=== PATIENT | female | born 1995 | race African-American/Black ===

== ENCOUNTER 2017-01-09 11:03 | Emergency (ER) | payer SELFPAY ==
[2017-01-09 11:15] VITALS: BP 105/59
[2017-01-09] MEDS ORDERED: diphenhydrAMINE 50 MG/ML SDV IVPUSH ONE (11:39)
[2017-01-09] MEDS ORDERED: Ondansetron 4 MG/2 ML SDV IVPUSH ONE (11:39)
[2017-01-09] MEDS ORDERED: Lactated Ringers 1,000 ML IV ONE ×2 (11:39→13:22)
[2017-01-09] MEDS ORDERED: Sodium Chloride 0.9% 10 ML Syringe FLUSH PRN (11:40)
[2017-01-09] MEDS ORDERED: Ketorolac 15 MG/ML SDV IVPUSH ONE (11:40)
--- NOTE | 2017-01-09 11:57 | EDM.PDOC ---
ED HPI GENERAL MEDICAL PROBLEM - General Chief Complaint: Headache Stated Complaint: DIZZINESS Time Seen by Provider: 01/09/17 11:30 Source of Information: Reports: Patient, Family, Old Records (previous ER visit) - History of Present Illness INITIAL COMMENTS - FREE TEXT/NARRATIVE: 21-year-old female presents with her family for evaluation and treatment of fevers, chills, headache and dizziness. Reportedly the symptoms started yesterday with heartburn. She has not taken her temperature at home but has felt feverish, dizzy, weak and restless. She reports she last had something to eat yesterday. She did have a little bit of water today. Reports that the heartburn has now mostly resolved. Drinking fluids and eating reportedly causes nausea. When questioned, she states that she does have chest pain, shortness of breath, sore throat and ear pain. No cough or abdominal pain. Family reports that she had heavier menstrual cycle this morning. She states that her menstrual cycle is now over with. Denies any dysuria but reports that her urine is red. Denies any pain in her legs recently. No treatment such as Tylenol, ibuprofen or other [id number] medications prior to arrival in the ER. Reports that she did travel to [place] via bus recently. Reports that she has a past medical history of asthma and seizures. Diagnosis seizures last year in October. She is transferred to [place] for further management and care. It is very unclear if she is still supposed to be on any seizure medications. She is not currently on any seizure medications. Is unclear if she has seen a neurologist since her diagnosis. Onset: Other (yesterday) Headache Pain Score (Numeric/FACES): 7 - Related Data Allergies Allergy/AdvReac Type Severity Reaction Status Date / Time No Known Allergies Allergy Verified 01/09/17 11:15 Home Meds: Home Meds . [No Known Home Meds] 11/28/15 [History] Past Medical History - Past Health History Medical/Surgical History: Denies Medical/Surgical History Respiratory History: Reports: Asthma Neurological History: Reports: Seizure Social & Family History - Tobacco Use Smoking Status *Q: Never Smoker - Recreational Drug Use Recreational Drug Use: No ED ROS GENERAL - Review of Systems Review Of Systems: See Below (languge barrier present; questionable comprehension of the patient and family) Constitutional: Reports: Fever, Chills, Malaise, Weakness, Other (restless) HEENT: Reports: Ear Pain, Throat Pain Respiratory: Reports: Shortness of Breath. Denies: Cough Cardiovascular: Reports: Chest Pain, Other (heartburn, now resolved) GI/Abdominal: Reports: Nausea. Denies: Abdominal Pain, Vomiting : Reports: Other (reports a heavy menstrual cycle this morning). Denies: Dysuria Neurological: Reports: Dizziness, Headache ED EXAM, GENERAL - Physical Exam Exam: See Below Exam Limited By: Language Barrier General Appearance: Alert, WD/WN, No Apparent Distress Eye Exam: Bilateral Eye: PERRL Ears: Normal External Exam, Normal Canal, Hearing Grossly Normal, Normal TMs Nose: Normal Inspection Throat/Mouth: Normal Inspection, Normal Lips, Normal Oropharynx, Normal Voice, No Airway Compromise Neck: Normal Inspection. No: Lymphadenopathy (L), Lymphadenopathy (R) Respiratory/Chest: No Respiratory Distress, Lungs Clear, Normal Breath Sounds Cardiovascular: Normal Peripheral Pulses, Regular Rate, Rhythm, No Murmur Peripheral Pulses: 2+: Radial (L), Radial (R), Posterior Tibial (L), Posterior Tibial (R) GI/Abdominal: Soft, Tender (generalized), Other (hypoactive bowel sounds) Extremities: No: Pete's Sign Neurological: Alert, Normal Cognition Psychiatric: Normal Affect, Normal Mood Skin Exam: Warm, Dry, Normal Color EKG INTERPRETATION EKG Date: 01/09/17 Time: 11:45 Rhythm: NSR Rate (Beats/Min): 94 [place]: Normal P-Wave: Present QRS: Normal ST-T: Normal QT: Normal EKG Interpretation Comments: NSR at 94 bpm. No acute changes. Reviewed by myself and Dr. Martinez. Course - Vital Signs Last Recorded V/S: Last Vital Signs Temp 37.4 C 01/09/17 11:11 Pulse 100 01/09/17 11:11 Resp 20 01/09/17 11:11 BP 105/59 L 01/09/17 11:11 Pulse Ox 97 01/09/17 11:11 Orthostatic Blood Pressure [ 92/71 Standing] Orthostatic Blood Pressure [ 88/45 Sitting] Orthostatic Blood Pressure [ 92/51 Supine] - Orders/Labs/Meds Orders: Active Orders 24 hr Category Date Time Status EKG 12 Lead [EKG Documentation Completion] [RC] STAT Care 01/09/17 11:38 Active Orthostatic Vital Signs [RC] ASDIRECTED Care 01/09/17 11:39 Active Peripheral IV Care [RC] . DIRECTED Care 01/09/17 11:40 Active Chest 1V Frontal [CR] Stat Exams 01/09/17 11:38 Taken Sodium Chloride 0.9% [Saline Flush] Med 01/09/17 11:40 Active 10 ml FLUSH ASDIRECTED PRN Peripheral IV Insertion Adult [OM.PC] Routine Oth 01/09/17 11:40 Ordered Medication Orders Sodium Chloride (Saline Flush) 10 ml FLUSH ASDIRECTED PRN PRN Reason: Keep Vein Open Last Admin: 01/09/17 12:02 Dose: 10 ml Labs: Laboratory Tests 01/09/17 01/09/17 01/09/17 Range/Units 11:43 11:43 11:43 WBC 5.74 (3.98-10.04) K/mm3 RBC 3.74 L (3.98-5.22) M/mm3 Hgb 11.8 (11.2-15.7) gm/L Hct 35.8 (34.1-44.9) % MCV 95.7 H (79.4-94.8) fl MCH 31.6 (25.6-32.2) pg MCHC 33.0 (32.2-35.5) g/dl RDW Std Deviation 45.3 (36.4-46.3) fL Plt Count 180 L (182-369) K/mm3 MPV 10.4 (9.4-12.3) fl Neutrophils % (Manual) 63 H (40-60) % Band Neutrophils % 4 (0-10) % Lymphocytes % (Manual) 24 (20-40) % Atypical Lymphs % 0 % Monocytes % (Manual) 7 (2-10) % Eosinophils % (Manual) 2 (0.7-5.8) % Basophils % (Manual) 0 L (0.1-1.2) Platelet Estimate Adequate RBC Morph Comment Normal D-Dimer, Quantitative 0.20 (0.19-0.59) mg/L Sodium 136 (136-145) mEq/L Potassium 3.4 L (3.5-5.1) mEq/L Chloride 100 (98-107) mEq/L Carbon Dioxide 23 (21-32) mEq/L Anion Gap 16.4 H (5-15) BUN 13 (7-18) mg/dL Creatinine 0.9 (0.55-1.02) mg/dL Est Cr Clr Drug Dosing 80.74 mL/min Estimated GFR (MDRD) > 60 (>60) mL/min BUN/Creatinine Ratio 14.4 (14-18) Glucose 79 (74-106) mg/dL Calcium 9.1 (8.5-10.1) mg/dL Total Bilirubin 0.6 (0.2-1.0) mg/dL AST 18 (15-37) U/L ALT 18 (14-59) U/L Alkaline Phosphatase 48 (46-116) U/L Troponin I (0.00-0.056) ng/mL C-Reactive Protein < 0.2 (<1.0) mg/dL Total Protein 8.2 (6.4-8.2) g/dl Albumin 3.8 (3.4-5.0) g/dl Globulin 4.4 gm/dL Albumin/Globulin Ratio 0.9 L (1-2) Lipase 218 (73-393) U/L HCG, Qual (NEGATIVE) Urine Color (Yellow) Urine Appearance (Clear) Urine pH (5.0-8.0) Ur Specific [place] (1.005-1.030) Urine Protein (Negative) Urine Glucose (UA) (Negative) Urine Ketones (Negative) Urine Occult Blood (Negative) Urine Nitrite (Negative) Urine Bilirubin (Negative) Urine Urobilinogen (0.2-1.0) Ur Leukocyte Esterase (Negative) Urine RBC (0-5) /hpf Urine WBC (0-5) /hpf Ur Epithelial Cells (0-5) /hpf Urine Bacteria (FEW) /hpf Urine Mucus (FEW) /hpf 01/09/17 01/09/17 01/09/17 Range/Units 11:43 11:43 13:05 WBC (3.98-10.04) K/mm3 RBC (3.98-5.22) M/mm3 Hgb (11.2-15.7) gm/L Hct (34.1-44.9) % MCV (79.4-94.8) fl MCH (25.6-32.2) pg MCHC (32.2-35.5) g/dl RDW Std Deviation (36.4-46.3) fL Plt Count (182-369) K/mm3 MPV (9.4-12.3) fl Neutrophils % (Manual) (40-60) % Band Neutrophils % (0-10) % Lymphocytes % (Manual) (20-40) % Atypical Lymphs % % Monocytes % (Manual) (2-10) % Eosinophils % (Manual) (0.7-5.8) % Basophils % (Manual) (0.1-1.2) Platelet Estimate RBC Morph Comment D-Dimer, Quantitative (0.19-0.59) mg/L Sodium (136-145) mEq/L Potassium (3.5-5.1) mEq/L Chloride (98-107) mEq/L Carbon Dioxide (21-32) mEq/L Anion Gap (5-15) BUN (7-18) mg/dL Creatinine (0.55-1.02) mg/dL Est Cr Clr Drug Dosing mL/min Estimated GFR (MDRD) (>60) mL/min BUN/Creatinine Ratio (14-18) Glucose (74-106) mg/dL Calcium (8.5-10.1) mg/dL Total Bilirubin (0.2-1.0) mg/dL AST (15-37) U/L ALT (14-59) U/L Alkaline Phosphatase (46-116) U/L Troponin I < 0.017 (0.00-0.056) ng/mL C-Reactive Protein (<1.0) mg/dL Total Protein (6.4-8.2) g/dl Albumin (3.4-5.0) g/dl Globulin gm/dL Albumin/Globulin Ratio (1-2) Lipase (73-393) U/L HCG, Qual Negative (NEGATIVE) Urine Color Yellow (Yellow) Urine Appearance Clear (Clear) Urine pH 6.0 (5.0-8.0) Ur Specific [place] 1.025 (1.005-1.030) Urine Protein 1+ H (Negative) Urine Glucose (UA) Negative (Negative) Urine Ketones 3+ H (Negative) Urine Occult Blood Trace-lysed H (Negative) Urine Nitrite Negative (Negative) Urine Bilirubin 1+ H (Negative) Urine Urobilinogen 1.0 (0.2-1.0) Ur Leukocyte Esterase Negative (Negative) Urine RBC 0-5 (0-5) /hpf Urine WBC 0-5 (0-5) /hpf Ur Epithelial Cells 0-5 (0-5) /hpf Urine Bacteria Few (FEW) /hpf Urine Mucus Many H (FEW) /hpf Meds: Medications Generic Name Dose Route Start Last Admin Trade Name Bonnie PRN Reason Stop Dose Admin Sodium Chloride 10 ml 01/09/17 11:40 01/09/17 12:02 Saline Flush FLUSH 10 ml ASDIRECTED PRN Administration Keep Vein Open Discontinued Medications Generic Name Dose Route Start Last Admin Trade Name Frebib PRN Reason Stop Dose Admin Diphenhydramine HCl 25 mg 01/09/17 11:39 01/09/17 11:59 Benadryl IVPUSH 01/09/17 11:40 25 mg ONETIME ONE Administration Lactated Ringer's 1,000 mls @ 999 mls/hr 01/09/17 11:39 01/09/17 12:02 Ringers, Lactated IV 01/09/17 12:39 999 mls/hr .BOLUS ONE Administration Lactated Ringer's 1,000 mls @ 999 mls/hr 01/09/17 13:22 01/09/17 13:36 Ringers, Lactated IV 01/09/17 14:22 999 mls/hr .BOLUS ONE Administration Ketorolac Tromethamine 15 mg 01/09/17 11:40 01/09/17 12:01 Toradol IVPUSH 01/09/17 11:41 15 mg ONETIME ONE Administration Ondansetron HCl 4 mg 01/09/17 11:39 01/09/17 11:57 Zofran IVPUSH 01/09/17 11:40 4 mg ONETIME ONE Administration - Radiology Interpretation Free Text/Narrative:: chest xray shows no acute intrathoracic process. - Re-Assessments/Exams Free Text/Narrative Re-Assessment/Exam: 01/09/17 13:48 I reviewed the labs, EKG and imaging results with the patient's family. The patient is currently sleeping at this time. Feels dehydration causing her symptoms. I will review her results with her when she is awake. She is currently receiving her second liter of fluids. Plan will be to discharge him for this. 01/09/17 14:54 Patient is alert. She has received the 2 L of fluid. I reviewed results with her. We will discharge her home. Discharge instructions as documented. Departure - Departure Time of Disposition: 14:54 Disposition: Home, Self-Care 01 Condition: Good Clinical Impression: Dehydration - Discharge Information Referrals: PCP,None [Primary Care Provider] - [place] [Physician] - Forms: ED Department Discharge Additional Instructions: Rest. Make sure you're drinking plenty of fluids. Drink about 8 8 ounce glasses of water, Gatorade or Powerade a day. Follow-up with family medicine next week for recheck of her symptoms. Recommend Dr. Monique. Please call [phone] to schedule with him. Please return to the ER if your symptoms change or worsen. - My Orders Last 24 Hours: My Active Orders 01/09/17 11:38 EKG 12 Lead [EKG Documentation Completion] [RC] STAT Chest 1V Frontal [CR] Stat 01/09/17 11:39 Orthostatic Vital Signs [RC] ASDIRECTED 01/09/17 11:40 Peripheral IV Care [RC] . DIRECTED Sodium Chloride 0.9% [Saline Flush] 10 ml FLUSH ASDIRECTED PRN Peripheral IV Insertion Adult [OM.PC] Routine - Assessment/Plan Last 24 Hours: My Active Orders 01/09/17 11:38 EKG 12 Lead [EKG Documentation Completion] [RC] STAT Chest 1V Frontal [CR] Stat 01/09/17 11:39 Orthostatic Vital Signs [RC] ASDIRECTED 01/09/17 11:40 Peripheral IV Care [RC] . DIRECTED Sodium Chloride 0.9% [Saline Flush] 10 ml FLUSH ASDIRECTED PRN Peripheral IV Insertion Adult [OM.PC] Routine
--- NOTE | 2017-01-09 15:26 | CR ---
Chest: Portable view of the chest was obtained. Comparison: No prior study. Heart size and mediastinum are normal. Lungs are clear. Bony structures are grossly intact. Impression: 1. Nothing acute is identified on portable chest x-ray. Diagnostic code #1
== END 2017-01-09 15:00 | disposition home or self-care (01) ==
LOC: JD.ED 11:03
DX: E86.0 Dehydration (principal); J45.909 Unspecified asthma, uncomplicated
CPT/HCPCS: 36415; 71010; 80053; 81001; 83690; 84484; 84703; 85025; 85379; 86140; 93005; 96361; 96374; 96375; 99284; J1200; J1885; J2405; J7050; J7120